=== PATIENT | female | born 1985 | race Caucasian/White ===

== ENCOUNTER 2016-10-01 15:12 | Emergency (ER) | payer OTHER ==
[~2016-10-01] VITALS: Ht 154.9 cm; Wt 89.3 kg
[~2016-10-01 15:12] MED LIST: PROBIOTIC PO; [UNRECOGNIZED DRUG - OTHER] PO
[2016-10-01 15:14] VITALS: BP 131/77
== END 2016-10-01 17:00 | disposition home or self-care (01) ==
LOC: ED 15:12
DX: J02.8 Acute pharyngitis due to other specified organisms (principal)